=== PATIENT | male | born 1940 | race Caucasian/White ===

== ENCOUNTER → 2017-04-22 | Day surgery (SDC) | payer MEDICARE ==
[2014-07-03 11:54] VITALS: BP 139/75
[~2017-04-22] MED LIST: IV RINGERS SOLUTION,LACTATED 1,000 ML IV ONE; PROPOFOL 20 ML IV ONE
== END | disposition home or self-care (01) ==
LOC: SURG 07:01
PROVIDERS: ATTEND Surgery
DX: Z09 Encounter for follow-up examination after completed treatment for conditions other than malignant neoplasm (principal); Z86.010 Personal history of colon polyps; K57.30 Diverticulosis of large intestine without perforation or abscess without bleeding; I25.10 Atherosclerotic heart disease of native coronary artery without angina pectoris
CPT/HCPCS: 45378; 99152; 99153; J2704; J7120

== ENCOUNTER → 2017-07-08 | Outpatient (CLI) | payer MEDICARE ==
[2014-07-03 11:54] VITALS: BP 139/75
--- NOTE | 2017-07-08 13:05 | CARD ---
APPROVED REPORT EXAM: Two-dimensional and M-mode echocardiogram with Doppler and color Doppler. Other Information Quality : Good INDICATION Cardiac Disease: 2D DIMENSIONS Left Atrium(2D)2.9 (1.6-4.0cm)IVSd1.2 (0.7-1.1cm) Aortic Root(2D)3.4 (2.0-3.7cm)LVDd5.3 (3.9-5.9cm) LVOT Diameter2.2 (1.8-2.4cm)PWd1.1 (0.7-1.1cm) LVDs3.5 (2.5-4.0cm)FS (%) 34.0 % SV84.5 mlLVEF(%)62.5 (>50%) Aortic Valve AoV Peak Fabiano.114.2cm/sAoV VTI24.1cm AO Peak GR.5.2mmHgLVOT Peak Fabiano.90.2cm/s LVOT VTI 18.10cmAO Mean GR.3mmHg KEDAR (VMAX)2.84ng8UXT (VTI)2.80cm2 Mitral Valve MV E Ddcwleag98.3cm/sMV DECEL MPLQ402tb MV A Rpizgcie63.1cm/sE/A Ratio0.7 Tricuspid Valve TR P. Ejvamiol270ni/sRAP KIVMGINX2rgTa TR Peak Gr.63vpMvENPF65reCb LEFT VENTRICLE The left ventricle is normal size. There is mild concentric left ventricular hypertrophy. Left ventri ayaka systolic function is normal. The Ejection Fraction is 50-55%. Transmitral Doppler flow pattern is Grade I-abnormal relaxation pattern. RIGHT VENTRICLE The right ventricle is normal size. There is normal right ventricular wall thickness. The right ventr icular systolic function is normal. ATRIA The left atrium size is normal. The right atrium size is normal. The interatrial septum is intact wit h no evidence for an atrial septal defect or patent foramen ovale as noted on 2-D or Doppler imaging. AORTIC VALVE The aortic valve is mildly calcified but opens well. Doppler and Color Flow revealed no significant a ortic regurgitation. There is no significant aortic valvular stenosis. MITRAL VALVE The mitral valve is normal in structure and function. There is no evidence of mitral valve prolapse. There is no mitral valve stenosis. Doppler and Color Flow revealed no mitral valve regurgitation note d. TRICUSPID VALVE The tricuspid valve is normal in structure and function. Doppler and Color Flow revealed trace to mil d tricuspid regurgitation. There is no pulmonary hypertension. The PA pressure was estimated at 15 mm Hg. There is no tricuspid valve prolapse or vegetation. There is no tricuspid valve stenosis. PULMONIC VALVE The pulmonary valve is normal in structure and function. Doppler and Color Flow revealed no pulmonic valvular regurgitation. There is no pulmonic valvular stenosis. GREAT VESSELS The aortic root is normal in size. The ascending aorta is normal in size. The IVC is normal in size a nd collapses >50% with inspiration. PERICARDIAL EFFUSION There is no pleural effusion. There is no evidence of significant pericardial effusion. Critical Notification Critical Value: No <Conclusion> Left ventricle systolic function is normal. The Ejection Fraction is 50-55%. Transmitral Doppler flow pattern is Grade I-abnormal relaxation pattern. Doppler and Color Flow revealed trace to mild tricuspid regurgitation. There is no pulmonary hypertension. The PA pressure was estimated at 15 mmHg. There is no evidence of significant pericardial effusion.
== END | disposition home or self-care (01) ==
LOC: ECHO 07:56
PROVIDERS: ATTEND Internal Medicine Cardiovascular Disease
DX: I25.5 Ischemic cardiomyopathy (principal); I51.7 Cardiomegaly
CPT/HCPCS: 93306

== ENCOUNTER → 2018-02-10 | Outpatient (CLI) | payer MEDICARE ==
[2014-07-03 11:54] VITALS: BP 139/75
--- NOTE | 2018-02-10 09:12 | RAD ---
CT CHEST WO CONTRAST dated 02/10/2018 8:31 AM Indication: Tobacco use.SMOKER TIMES 57 YEARS, UNEXPLAINED WEIGHT LOSS
NO CONTRAST PER ORDER. Comparison: No comparison is available. Technique: Contiguous axial imaging of the chest performed without the administration of intravenous contrast. One or more of the following individualized dose reduction techniques were utilized for this examination: 1. Automated exposure control 2. Adjustment of the mA and/or kV according to patient size 3. Use of iterative reconstruction technique Findings: Heart size within normal limits. No pericardial effusion. Extensive coronary artery calcifications. Ectasia of the ascending thoracic aorta measuring up to 4.4 cm transverse diameter. No mediastinal, hilar or axillary lymphadenopathy. The thyroid gland is unremarkable. Central airways are patent. Noncalcified pulmonary nodule in the right lower lobe on image 85 measures 6 mm. Noncalcified pulmonary nodule in the right lower lobe on image 75 measures 3 mm. Noncalcified nodular density in the right upper lobe on image 28 measures 6 mm. Small noncalcified pulmonary nodule left upper lobe on image 20 measures 3 mm. There is biapical consolidation, most likely scarring. A few additional small noncalcified subpleural nodules throughout both lungs. No consolidation or pleural effusion. Mild emphysema. Limited images of the upper abdomen show large calcific stone within the gallbladder lumen. There is scattered hepatic calcifications. No significant bony abnormality. Multilevel spondylosis. IMPRESSION: 1. Multiple noncalcified pulmonary nodules scattered throughout both lungs, nonspecific. Follow-up imaging in 6 months to ensure stability. 2. Mild emphysema. 3. Coronary artery calcifications and mild aneurysmal dilation of the ascending thoracic aorta. 4. Cholelithiasis. Electronically signed by: Hever Anna MD (02/10/2018 9:09 AM) [facility]
== END | disposition home or self-care (01) ==
LOC: CT 08:17
PROVIDERS: ATTEND Family Medicine
DX: J43.9 Emphysema, unspecified (principal); K80.80 Other cholelithiasis without obstruction; M47.894 Other spondylosis, thoracic region; I10 Essential (primary) hypertension; Z87.891 Personal history of nicotine dependence
CPT/HCPCS: 71250

== ENCOUNTER → 2018-07-02 | Outpatient (CLI) | payer MEDICARE ==
[2014-07-03 11:54] VITALS: BP 139/75
--- NOTE | 2018-07-02 10:39 | RAD ---
Examination: CT chest without contrast HISTORY: History of follow-up lung nodule COMPARISON: 02/10/2018 TECHNIQUE: Axial CT images of the chest were performed without contrast. Coronal and sagittal reformats are performed Exposure: One or more of the following individualized dose reduction techniques were utilized for this examination: 1. Automated exposure control 2. Adjustment of the mA and/or kV according to patient size 3. Use of iterative reconstruction technique FINDINGS: The ascending aorta measures 4.1 cm in transverse dimension. Diffuse coronary artery calcifications identified. Moderate aortic atherosclerosis. Apical lung scarring or chronic consolidation changes identified in the bilateral lungs similar to prior exam. Emphysematous changes identified in the apical lungs are similar to prior exam. There is a 5 mm solid nodule identified in the right lower lobe of the lung, a 6 mm nodule identified in the right lower lobe of the lung, noncalcified nodular density in the right upper lobe of the lung measuring 6 mm, a noncalcified pulmonary nodule measuring 3 mm in the left upper lobe of the lungs similar to prior exam. No evidence of pleural effusion or pneumothorax. The visualized noncontrasted liver, spleen demonstrates a few calcified granulomas. Large gallstone identified within the gallbladder. Moderate degenerative changes thoracic spine. IMPRESSION: 1. Multiple noncalcified pulmonary nodules identified in the bilateral lungs similar to prior exam with the largest measuring 6 mm in the right lower lobe of the lung. Continued follow-up per Fleischner Society guidelines is recommended in 6-12 months. 2. Biapical lung scarring changes or chronic consolidation cyst similar to prior exam. 3. Mild dilatation of the ascending aorta likely mild aneurysmal change. 4. Cholelithiasis. Electronically signed by: Chaparro Ocampo MD (07/02/2018 10:35 AM) [facility]
== END | disposition home or self-care (01) ==
LOC: RAD 09:55
PROVIDERS: ATTEND Family Medicine
DX: R91.8 Other nonspecific abnormal finding of lung field (principal); K80.80 Other cholelithiasis without obstruction; M47.894 Other spondylosis, thoracic region
CPT/HCPCS: 71250

== ENCOUNTER → 2018-08-11 | Outpatient (CLI) | payer MEDICARE ==
[2014-07-03 11:54] VITALS: BP 139/75
--- NOTE | 2018-08-11 11:55 | RAD ---
MR#: [id number] Date of Study: 08/11/2018 Ordering Physician: KEM LANGFORD, Referring Physician: KEM LANGFORD, Tech: Diane Sapp RDMS, ZEUST, RTR APPROVED REPORT Patient Location: OUT-PATIENT Laterality:Bilateral Indications Bruit Grayscale images of the bilateral common carotid, external and internal carotid vessels reveals mild intimal hyperplasia. On the left there is a eccentric less than 50% soft and mildly calcified plaque noted at the proximal common carotid artery. Spectral waveforms and color Doppler involving the internal carotid artery are within normal limits o n the right and left sides. No focal obstructive lesion is noted. Overall based on velocity criteria 0 to less than 50% stenosis. The left vertebral velocity is diminished and this may represent a definitive or atretic left vertebr al artery versus technical issue related to imaging. The right vertebral artery demonstrates normal v elocities. Critical Notification Critical Value: No <Conclusion> 1. No focal high-grade stenosis identified in the bilateral internal carotid vessels. 2. Left vertebral artery is diminutive and/or occluded versus technical imaging issue as it is noted to have significantly diminished velocities. Signed by : Kem Langford, Electronically Approved : 08/11/2018 11:53:43
== END | disposition home or self-care (01) ==
LOC: US 09:40
PROVIDERS: ATTEND Internal Medicine Cardiovascular Disease
DX: I65.23 Occlusion and stenosis of bilateral carotid arteries (principal); I25.5 Ischemic cardiomyopathy; I77.3 Arterial fibromuscular dysplasia
CPT/HCPCS: 93880

== ENCOUNTER → 2018-12-29 | Outpatient (CLI) | payer MEDICARE ==
[2014-07-03 11:54] VITALS: BP 139/75
--- NOTE | 2018-12-29 14:01 | RAD ---
CT of the chest without contrast, 12/29/2018: HISTORY: Follow-up abnormal CT finding Noncontrast scans were obtained as requested and compared to a study from 07/02/2018. There are unchanged streaky pleural/parenchymal opacities in both apices which contains several calcifications. The appearance suggests scarring. Underlying emphysematous changes are again noted. There are a few scattered linear parenchymal scars in both lungs. There are several calcified granulomata in both lungs. There is a 7 mm noncalcified nodule in the right lower lobe as seen on image 246 of series #5. This appears unchanged since 07/02/2018. A 3 mm nodule in the left upper lobe seen on image 49 of series #5 is unchanged. A couple of other very tiny scattered pulmonary nodules also appear unchanged. There is no evidence of pleural fluid. There is moderate calcific plaquing of the thoracic aorta. The ascending aorta measures 4.3 cm in width. It appears unchanged since 07/02/2018. Moderate scattered coronary artery calcifications are present. No mediastinal adenopathy is seen. A dense gallstone is identified noted in the gallbladder. There is no pericholecystic edema. There are moderate scattered degenerative changes in the spine. There is an unchanged dense sclerotic focus in approximately the L2 vertebral body. IMPRESSION: 1. Emphysema with chronic pleural-parenchymal scarring. 2. Old healed granulomatous disease in the chest. 3. There are several noncalcified nodule with the largest of these lying in the right lower lobe and showing no significant interval change. Further CT follow-up is suggested to exclude a slowly growing neoplasm. 4. Aortic atherosclerosis with mild unchanged dilatation of the ascending aorta. 5. Moderate coronary artery calcifications. 6. Cholelithiasis. PQRS Compliance Statement: One or more of the following individualized dose reduction techniques were utilized for this examination: 1. Automated exposure control 2. Adjustment of the mA and/or kV according to patient size 3. Use of iterative reconstruction technique Electronically signed by: Oscar No MD (12/29/2018 1:58 PM) [facility]
== END | disposition home or self-care (01) ==
LOC: CT 08:31
PROVIDERS: ATTEND Family Medicine
DX: J43.8 Other emphysema (principal); J98.4 Other disorders of lung; J84.10 Pulmonary fibrosis, unspecified; R91.8 Other nonspecific abnormal finding of lung field; I70.0 Atherosclerosis of aorta; I25.10 Atherosclerotic heart disease of native coronary artery without angina pectoris; K80.20 Calculus of gallbladder without cholecystitis without obstruction
CPT/HCPCS: 71250

== ENCOUNTER → 2019-07-13 | Outpatient (CLI) | payer MEDICARE ==
[2014-07-03 11:54] VITALS: BP 139/75
--- NOTE | 2019-07-14 14:34 | RAD ---
Abdominal aortic ultrasound for history of aortic dilatation, smoker. TECHNIQUE AND FINDINGS: Real-time maynard scale and color Doppler evaluation of the aorta and iliac arteries is performed. There is atherosclerosis in all distributions. There is fusiform aneurysmal dilatation of the infrarenal abdominal aorta to a maximum diameter of 2.7 x 3.0 cm at the mid aortic level. There is color flow present within the aorta and iliac arteries. IMPRESSION: 1. 3 cm infrarenal abdominal aortic aneurysm, not grossly changed in subjective appearance from the prior examination where it measured 2.8 cm. Electronically signed by: Vicente Zhao MD (07/14/2019 2:31 PM) [facility]
== END | disposition home or self-care (01) ==
LOC: US 09:13
PROVIDERS: ATTEND Family Medicine
DX: I71.4 Abdominal aortic aneurysm, without rupture (principal)
CPT/HCPCS: 76770

== ENCOUNTER → 2019-12-30 | Outpatient (CLI) | payer MEDICARE ==
[2014-07-03 11:54] VITALS: BP 139/75
--- NOTE | 2019-12-30 11:26 | RAD ---
EXAM: CT Chest without IV contrast CLINICAL HISTORY: ABNORMAL FINDING OF THE LUNG, follow-up lung nodule COMPARISON: CT 02/10/2018, 07/02/2018, 12/29/2018 TECHNIQUE: CT of the chest without intravenous contrast. Axial, coronal and sagittal reformatted images were generated. ---PQRS compliance statement - One or more of the following individualized dose reduction techniques were utilized for this study: 1. Automated exposure control 2. Adjustment of the mA and/or kV according to patient size 3. Use of iterative reconstruction technique--- FINDINGS: Lack of intravenous contrast limits evaluation of solid organs, vasculature, and lymph nodes. Chest: Heart is not enlarged. Coronary artery calcifications are seen. Aortic root calcifications are noted. The ascending aorta measures 4.3 cm level of the aortic arch, stable. No pleural effusion or pneumothorax. No axillary lymphadenopathy. No mediastinal or hilar lymphadenopathy. A 3 mm left upper lobe lung nodule (series 5 image 50) is stable. A 7 mm right lower lobe lung nodule (series 5 image 260) is stable. Scattered calcified granuloma are seen. A few other <4 mm lung nodules are stable. Biapical pleural/parenchymal scarring/thickening with pleural-based calcifications are stable. Background of emphysema. Visualized Upper abdomen: Cholelithiasis. Calcifications within the liver and spleen, likely calcified granuloma. Bones: Degenerative changes of the thoracic spine. Sclerotic lesion within L2 is stable. IMPRESSION: 1. Multiple lung nodules bilaterally are stable, including a 7 mm right lower lobe lung nodule, stable to 02/10/2018. 2. Mild ascending aortic dilatation is stable. Electronically signed by: Akin Batista MD (12/30/2019 11:23 AM) [place] [id number]
== END ==
LOC: CT 09:27
PROVIDERS: ATTEND Family Medicine
DX: R91.8 Other nonspecific abnormal finding of lung field (principal)
CPT/HCPCS: 71250

== ENCOUNTER → 2020-06-06 | Outpatient (CLI) | payer MEDICARE ==
[2014-07-03 11:54] VITALS: BP 139/75
--- NOTE | 2020-06-06 15:49 | CARD ---
MR#: [id number] Date of Study: 06/06/2020 Ordering Physician: KEM LANGFORD, Referring Physician: KEM LANGFORD, Tech: Kathie White APPROVED REPORT EXAM: Two-dimensional and M-mode echocardiogram with Doppler and color Doppler. Other Information Quality : AverageHR: 63bpm INDICATION Cardiomyopathy RISK FACTORS Hypertension Smoking 2D DIMENSIONS Left Atrium(2D)2.7 (1.6-4.0cm)IVSd0.9 (0.7-1.1cm) Aortic Root(2D)3.6 (2.0-3.7cm)LVDd4.9 (3.9-5.9cm) LVOT Diameter2.0 (1.8-2.4cm)PWd1.1 (0.7-1.1cm) LVDs3.6 (2.5-4.0cm)FS (%) 26.3 % SV57.7 ml Aortic Valve AoV Peak Fabiano.119.2cm/sAoV VTI22.9cm AO Peak GR.5.7mmHgLVOT Peak Fabiano.78.7cm/s LVOT VTI 17.85cmAO Mean GR.4mmHg KEDAR (VMAX)2.71eh3NYY (VTI)2.54cm2 Mitral Valve MV E Kgvsljfx81.1cm/sMV DECEL XCOG860ce MV A Mtjmlkfw14.5cm/sE/A Ratio0.7 Pulmonary Valve PV Peak Yylyqrec77.7cm/sPV Peak Grad.1mmHg Pulmonary Vein S1 Phjhgfxv84.0cm/sD2 Fcvdccxh23.8cm/s LEFT VENTRICLE The left ventricle is normal size. There is borderline to mild concentric left ventricular hypertroph y. The left ventricular systolic function is low normal to mildly decreased. The Ejection Fraction is 45-50%. Septal motion consistent with conduction abnormality. Transmitral Doppler flow pattern is Gr mary I-abnormal relaxation pattern. RIGHT VENTRICLE The right ventricle is borderline dilated. There is normal right ventricular wall thickness. The righ t ventricular systolic function is normal. ATRIA The left atrium size is normal. The right atrium size is normal. The interatrial septum is intact wit h no evidence for an atrial septal defect or patent foramen ovale as noted on 2-D or Doppler imaging. AORTIC VALVE The aortic valve is thickened but opens well. Doppler and Color Flow revealed no significant aortic r egurgitation. There is no significant aortic valvular stenosis. Calculated aortic valve area is 2.7 c m2 with maximum pressure gradient of 6 mmHg and mean pressure gradient of 4 mmHg. MITRAL VALVE The mitral valve is normal in structure and function. There is no evidence of mitral valve prolapse. There is no mitral valve stenosis. Doppler and Color-flow revealed trace mitral regurgitation. TRICUSPID VALVE The tricuspid valve is normal in structure and function. Doppler and Color Flow revealed no tricuspid valve regurgitation noted. There is no tricuspid valve stenosis. PULMONIC VALVE The pulmonic valve is not well visualized. Doppler and Color Flow revealed no pulmonic valvular regur gitation. GREAT VESSELS The aortic root is normal in size. The IVC is normal in size and collapses >50% with inspiration. PERICARDIAL EFFUSION There is no evidence of significant pericardial effusion. Critical Notification Critical Value: No <Conclusion> The left ventricle is normal size. The left ventricular systolic function is low normal to mildly decreased. The Ejection Fraction is 45-50%. Septal motion consistent with conduction abnormality. There is borderline to mild concentric left ventricular hypertrophy. Doppler and Color Flow revealed no significant aortic regurgitation. There is no significant aortic valvular stenosis. Doppler and Color-flow revealed trace mitral regurgitation. Doppler and Color Flow revealed no tricuspid valve regurgitation noted. Signed by : Abel Chen MD Electronically Approved : 06/06/2020 15:48:54
== END ==
LOC: ECHO 08:53
PROVIDERS: ATTEND Internal Medicine Cardiovascular Disease
DX: I25.5 Ischemic cardiomyopathy (principal); I51.7 Cardiomegaly
CPT/HCPCS: 93306

== ENCOUNTER → 2020-07-12 | Outpatient (CLI) | payer MEDICARE ==
[2014-07-03 11:54] VITALS: BP 139/75
[~2020-07-12] MED LIST changes: +IOHEXOL 300 MG/ML 75 ML VIAL. IV ONE; -IV RINGERS SOLUTION,LACTATED 1,000 ML IV ONE; -PROPOFOL 20 ML IV ONE
--- NOTE | 2020-07-12 11:00 | RAD ---
Examination: CT ABDOMEN PELVIS WO/W History: Reason: HEMATURIA / Spl. Instructions: / History: Comparison/Correlation: None Findings: Axial images of the abdomen and pelvis were obtained prior to and following IV contrast according to IVP urogram protocol. Maximum intensity projection images were obtained. Bibasilar linear atelectasis or scarring noted. Coronary arterial calcification noted. Hepatic and splenic calcifications noted. There is a 1.9 cm diameter calculus present in the gallbladder. Pancreas and adrenal glands are normal. Significant bilateral renal arterial calcification is present. No definite renal collecting system calculus. No hydronephrosis or hydroureter. No radiopaque calculus identified within the ureters. No suspicious filling defects involving the pyelocalyceal systems. Ureters do not fully opacified with contrast The urinary bladder is mostly decompressed and unremarkable. Circumferential wall thickening of the urinary bladder is present. Right renal lower pole 2.2 cm diameter cyst is present. Large quantity of stool in the colon is present. The appendix is normal. No bowel obstruction or extraluminal gas. Prostatomegaly is noted. Prostate gland measures 5.5 cm x 3.8 cm. No enlarged abdominal or pelvic lymph nodes. Infrarenal abdominal aortic aneurysm with diameter 3.2 cm present. The right common iliac arterial aneurysm of 1.5 cm diameter is present. Diffuse ectasia of the right common iliac artery noted. Left common iliac artery ectasia is also evident. Distal left common iliac arterial aneurysms present measuring up to 2.2 cm diameter. Focal calcific dissection is questioned within the distal left common iliac artery bifurcation. Anterolisthesis of L5 in relation to S1 of nearly grade 2 extent is present with bilateral spondylolysis. Significant L5-S1 disc space narrowing. Sclerotic lesion involving L2 measuring 1.6 cm is present and likely represents a bone island. Impression: Cholelithiasis. Infrarenal abdominal aortic aneurysm. 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 No radiopaque collecting system calculi or collecting system obstruction. No collecting system masses identified. Bilateral L5 pars interarticularis fractures with grade 2 anterolisthesis of L5 over S1. Prostatomegaly. Circumferential wall thickening of the urinary bladder may relate to partial obstruction. PQRS Compliance Statement: One or more of the following individualized dose reduction techniques were utilized for this examination: 1. Automated exposure control 2. Adjustment of the mA and/or kV according to patient size 3. Use of iterative reconstruction technique Electronically signed by: Pradip Hernandez MD (07/12/2020 10:57 AM) [id number]
== END ==
LOC: CT 07:59
PROVIDERS: ATTEND Family Medicine
DX: K80.20 Calculus of gallbladder without cholecystitis without obstruction (principal); I71.4 Abdominal aortic aneurysm, without rupture; I72.3 Aneurysm of iliac artery; R31.29 Other microscopic hematuria
CPT/HCPCS: 74178; Q9967

== ENCOUNTER → 2020-12-20 | Outpatient (CLI) | payer MEDICARE ==
[2014-07-03 11:54] VITALS: BP 139/75
--- NOTE | 2020-12-20 12:49 | RAD ---
EXAM: Chest CT without intravenous contrast. HISTORY: Pulmonary nodules. TECHNIQUE: Computed tomographic images of the chest were obtained without contrast. Multiplanar refor matting was performed. *One or more of the following individualized dose reduction techniques were utilized for this examina tion: 1. Automated exposure control. 2. Adjustment of the mA and/or kV according to patient size. 3. Use of iterative reconstruction technique. COMPARISON: 12/29/2018. FINDINGS: There is stable partially calcified biapical pleural plaque superimposed on mild biapical p redominant emphysema with subpleural bleb formation. There is no pneumothorax. There is no pleural ef fusion. There is linear atelectasis or scarring within the bilateral lower lobes. There is a 7 mm nodule within the right lower lobe, stable compared to the study performed 12/29/2018. There is a stable 3 mm nodule within the right lower lobe with adjacent 10 mm faint groundglass opac ity. There is a stable 2 mm groundglass opacity at the left lung base. There is a stable 2 mm pleural -based nodule within the lateral left upper lobe. There are several stable solid and groundglass nodu les within the bilateral lung apices measuring up to 4 mm, likely associated with adjacent pleural pa renchymal scarring. The heart is normal in size. There is calcified atherosclerotic plaque involving the coronary arterie s and thoracic aorta. There is stable dilatation of the ascending aorta to a caliber of 4.2 cm. There is no lymphadenopathy. There are multiple splenic and hepatic granulomas. There is cholelithiasis. T here are renal vascular calcifications. There is partial visualization of a suspected aneurysmal abdo mika aorta measuring up to 3.0 cm on the vvjqb-it-aidw. There are degenerative changes throughout th e spine. There is no acute or suspicious osseous finding. IMPRESSION: 1. Multiple stable pulmonary nodules measuring up to 7 mm. The two-year course of stability favors be nignity. Continued follow-up can be performed in one year. 2. Stable partially calcified biapical pleural plaque superimposed on apical predominant emphysema an d scattered benign apical nodular opacities. 3. Stable aneurysmal dilatation of the ascending aorta to a caliber of 4.2 cm. There is also partial visualization of a suspected abdominal aortic aneurysm measuring up to 3.0 cm on the svikx-bk-ptkw. 4. Cholelithiasis. 5. Aortic and aortic branch vessel atherosclerosis. Electronically signed by: Lily Booker MD (12/20/2020 12:47 PM) [id number]
== END ==
LOC: CT 11:11
PROVIDERS: ATTEND Family Medicine
DX: R91.8 Other nonspecific abnormal finding of lung field (principal); I71.2 Thoracic aortic aneurysm, without rupture; K80.20 Calculus of gallbladder without cholecystitis without obstruction; I70.0 Atherosclerosis of aorta; I25.10 Atherosclerotic heart disease of native coronary artery without angina pectoris
CPT/HCPCS: 71250